=== PATIENT | male | born 1975 | race Caucasian/White ===

== ENCOUNTER → 2018-12-14 | Outpatient (CLI) | payer OTHER ==
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
== END | disposition home or self-care (01) ==
LOC: RADUSWWP 10:09
PROVIDERS: ATTEND Family Medicine
DX: R60.0 Localized edema (principal)
CPT/HCPCS: 93970

== ENCOUNTER → 2019-02-08 | Outpatient (CLI) | payer OTHER ==
--- NOTE | 2019-02-08 19:54 | CONS ---
CONSULTATION REASON FOR CONSULTATION: Sleep apnea and hypersomnia. This is a 43-year-old male patient coming in with low loud snoring, witnessed apneas, excessive fatigue and sleepiness, sleep fragmentation, frequent nocturnal arousals, chronic tiredness and sleepiness with an Jermyn score of 23. He fights to stay awake while driving. He has never been involved in a motor vehicle accident. He goes to bed around 11 p.m., wakes up at 6 a.m. in the morning. No sleep paralysis. No hallucinations. No cataplexy. He has gained a considerable amount of weight; more than 100 pounds over the past 10 years. PAST MEDICAL HISTORY: Negative. PAST SURGICAL HISTORY: Negative. DRUG ALLERGIES: PENICILLIN. OUTPATIENT MEDICATIONS: None. SOCIAL HISTORY: Nonsmoker. No history of alcoholism. No history of IV drugs. FAMILY HISTORY: Negative for sleep apnea. REVIEW OF SYSTEMS: Fourteen-point review of system was done. Positive findings are all mentioned above in the history of present illness. He wakes up for urge to urinate and he has nocturia. No grinding of the teeth. No sleepwalking. No anxiety or panic attacks. No palpitation. No heartburn. No sweating. No anxiety or depression. PHYSICAL EXAMINATION: VITAL SIGNS: BP is. 137/89, pulse 83, respirations 18, temperature 98.5. Saturation is 99% on room air. Height is 5 feet 8 inches, weight 336, and BMI is 51.0. Neck size 18- 3/4 inches. Jermyn score is 23. GENERAL APPEARANCE: Calm, comfortable. No acute distress. HEAD: Atraumatic, normocephalic. NECK: Supple. No JVD. No goiter or neck masses. Mallampati class IV. LUNGS: Clear to auscultation. HEART: Heart sounds are regular rate and rhythm. Normal S1, S2. No S3, S4. No murmurs. ABDOMEN: Soft, nontender. No organomegaly. EXTREMITIES: No edema. No cyanosis or clubbing. NEUROLOGIC: Awake and alert and oriented x3. No focal neurological deficits. PSYCHIATRIC: Negative for anxiety or depression. IMPRESSION: 1. Chronic hypersomnia with Jermyn score of 23 with a high likelihood of obstructive sleep apnea. 2. Loud snoring. 3. Obesity with a body mass index of 51. PLAN: Immediate polysomnogram with a high suspicion for obstructive sleep apnea. The patient will need CPAP therapy at a later stage. Encourage weight loss. Implement good sleep hygiene measures. Refrain from driving, especially when feeling drowsy or sleepy. Will continue to follow and make further recommendations based on the patient's overall progress. Overall likelihood of sleep apnea is quite high in this patient. MMODL / IJN: [id number] /
== END | disposition home or self-care (01) ==
LOC: SLEEP 15:14
PROVIDERS: ATTEND Internal Medicine Critical Care Medicine
DX: R06.83 Snoring (principal); E66.9 Obesity, unspecified; Z68.43 Body mass index [BMI] 50.0-59.9, adult; R53.83 Other fatigue; R35.1 Nocturia; Z88.0 Allergy status to penicillin
CPT/HCPCS: 99211

== ENCOUNTER 2020-06-17 19:10 | Emergency (ER) | payer OTHER ==
[2020-06-17 19:28] VITALS: PULSE 81; RESP 20; TEMP 98.6
[2020-06-17] MEDS ORDERED: diazePAM 2 MG TAB PO STA (19:52)
[2020-06-17] MEDS ORDERED: ACETAMINOPHEN TAB 325 MG TAB PO STA (19:52)
--- NOTE | 2020-06-17 19:53 | ED ---
Back Pain HPI - General Chief Complaint: Back Pain/Injury Stated Complaint: back pain Time Seen by Provider: 06/17/20 19:44 Source: patient Limitations: no limitations - History of Present Illness Initial Comments: 45-year-old male presenting to the emergency department today for chief complaint of one week of right-sided low back pain. Patient states he has had right-sided low back pain for the past week. 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 Patient denies IV drug use cancer. Patient denies any fevers dysuria urgency frequency or hematuria. Patient denies upper back pain chest pain shortness of breath he denies radiation of the pain into the legs he denies loss of bowel bladder control urinary retention weakness or sensation deficits of the lower extremity. Patient states the pain increases with twisting lifting he states at times when he is walking he feels a spasm and feels the muscle clenching. He states he has tried pain medications, steroids at home. Patient states that they dont seem to be working. He states that he saw his chiropractor who took xrays and said everything looked fine. Sangn denies additional complaints upon arrival he appears well nontoxic in no acute distress. ambulatory. - Related Data Previous Rx's Medication Instructions Recorded Cyclobenzaprine [Flexeril] 10 mg PO TID PRN 7 Days #21 tab 06/17/20 Allergies Allergy/AdvReac Type Severity Reaction Status Date / Time Penicillins Allergy Unknown Verified 06/17/20 19:24 Review of Systems ROS Statement: Those systems with pertinent positive or pertinent negative responses have been documented in the HPI. ROS Other: All systems not noted in ROS Statement are negative. Past Medical History Past Medical History: No Reported History History of Any Multi-Drug Resistant Organisms: MRSA Date of last positivie culture/infection: 2003 MDRO Source:: left thigh Additional Past Surgical History / Comment(s): cyst removed from hand Past Psychological History: No Psychological Hx Reported Smoking Status: Former smoker Past Alcohol Use History: Rare Past Drug Use History: None Reported General Exam - General Exam Comments Initial Comments: General: The patient is awake and alert, in no distress Eye: +3 mm pupils are equal, round and reactive to light, extra-ocular movements are intact. No nystagmus. There is normal conjunctiva bilaterally. No signs of icterus. Cardiovascular: There is a regular rate and rhythm. No murmur, rub or gallop is appreciated. Respiratory: Lungs are clear to auscultation, respirations are non-labored, breath sounds are equal. No wheezes, stridor, rales, or rhonchi. Gastrointestinal: Soft, non-distended, non-tender abdomen without masses or organomegaly noted. There is no rebound or guarding present. no pulsatile masses. Musculoskeletal: There is paraspinal tenderness and tension of the lumbar spine. No midline tenderness. normal skin exam. Normal ROM, no tenderness. Strength 5/5 of the LE b/l, ambulatory. Sensation intact of the LE b/l inclduing saddle region. Radial and DP pulses equal bilaterally 2+. Neurological: A&O x 3. CN II-XII intact grossly, There are no obvious motor or sensory deficits. Coordination appears grossly intact. Speech is normal. Skin: Skin is warm and dry and no rashes or lesions are noted. Psychiatric: Cooperative, appropriate mood & affect, normal judgment. Limitations: no limitations Course Vital Signs 06/17/20 06/17/20 19:25 21:35 Temperature 98.6 F Pulse Rate 81 Respiratory 20 Rate Blood Pressure 147/94 144/100 O2 Sat by Pulse 98 Oximetry Medical Decision Making - Medical Decision Making Clinically this appears most consistent with low back strain. pt is communication equipment mechanic frequent, bending ect. patient has xray outpatient. no trauma/cancer ect. no fevers or clinical hx concerning for cauda equina. patient appears well nontoxic. he is agreeable to symptomatic treatment and discharge. patient case discussed with Dr. Coronel who is agreeable to care plan. - Lab Data Lab Results 06/17/20 Range/Units 20:15 Urine Color Yellow Urine Appearance Clear (Clear) Urine pH 6.0 (5.0-8.0) Ur Specific [place] 1.035 (1.001-1.035) Urine Protein Trace H (Negative) Urine Glucose (UA) Negative (Negative) Urine Ketones Negative (Negative) Urine Blood Trace H (Negative) Urine Nitrite Negative (Negative) Urine Bilirubin Negative (Negative) Urine Urobilinogen <2.0 (<2.0) mg/dL Ur Leukocyte Esterase Negative (Negative) Urine RBC 2 (0-5) /hpf Urine WBC 1 (0-5) /hpf Urine Mucus Occasional H (None) /hpf Disposition Clinical Impression: Low back pain, Back spasm Disposition: HOME SELF-CARE Condition: Good Instructions (If sedation given, give patient instructions): Acute Low Back Pain (ED) Additional Instructions: Please use medication as discussed. Please follow-up with family doctor in the next 2 days. Please return to emergency room if the symptoms increase or worsen or for any other concerns. Prescriptions: Cyclobenzaprine [Flexeril] 10 mg PO TID PRN 7 Days #21 tab PRN Reason: Muscle Spasm Is patient prescribed a controlled substance at d/c from ED?: No Referrals: Pricila Tomlinson DO [Primary Care Provider] - 1-2 days Time of Disposition: 21:16
[2020-06-17 20:33] LABS: Appearance,Urine Clear (Clear); Bilirubin,Urine Negative (Negative); Blood,Urine Trace (Negative); Color,Urine Yellow; Glucose,Urine (UA) Negative (Negative); Ketones,Urine Negative (Negative); Leukocyte Esterase,Urine Negative (Negative); Mucus,Urine Occasional /hpf; Nitrite,Urine Negative (Negative); Protein,Urine Trace (Negative); RBC,Urine 2 /hpf (0-5); Specific Gravity,Urine 1.035 (1.001-1.035); Urobilinogen,Urine <2.0 mg/dL (<2.0); WBC,Urine 1 /hpf (0-5)
--- NOTE | 2020-06-17 21:10 | CT ---
EXAMINATION TYPE: CT abdomen pelvis wo con DATE OF EXAM: 06/17/2020 COMPARISON: None HISTORY: Right back pain, blood in urine CT DLP: 1854 mGycm Automated exposure control for dose reduction was used. Lung bases are clear. There is no pleural effusion. Liver spleen stomach pancreas gallbladder appear normal. The bile ducts are not dilated. There is no adrenal mass. Kidneys have normal size and contour. There is no hydronephrosis. Ureters a re not dilated. There is no retroperitoneal adenopathy. Bladder distends smoothly. There is no inguin al hernia. The appendix appears normal. The lumbar vertebra have normal alignment. Posterior elements are intact. The bony pelvis is intact. Hip joints are intact. IMPRESSION: No evidence of renal stone or obstruction.
[2020-06-17] MEDS ORDERED: CYCLOBENZAPRINE 10MG STARTER 3 TAB BTL PO STA (21:32)
[2020-06-17 21:36] VITALS: BP 144/100
== END 2020-06-17 21:36 | disposition home or self-care (01) ==
LOC: EC 19:10
DX: M54.5 Low back pain (principal); M62.830 Muscle spasm of back; Z87.891 Personal history of nicotine dependence; Z88.0 Allergy status to penicillin
CPT/HCPCS: 74176; 81001; 99284